=== PATIENT | male | born 1985 | race Caucasian/White ===

== ENCOUNTER → 2021-04-06 | Outpatient (CLI) | payer BC ==
--- NOTE | 2021-04-06 15:48 | CT ---
EXAMINATION TYPE: CT lower extremity RT wo con DATE OF EXAM: 04/06/2021 COMPARISON: None HISTORY: Right fibular fracture CT DLP: 230.8 mGycm Automated exposure control for dose reduction was used. Helical imaging through the right ankle, 3-di mensional reconstructions performed on an alternate workstation and reviewed FINDINGS: Oblique distal right fibular fracture extends into the tibiofibular joint distally, minimal displacem ent. Small ossific density at the level of the distal fibula is well-corticated and not felt likely t o be acute. There is a punctate ossific density level of the os trigonum which is felt likely to be c hronic but is indeterminate, sagittal image #20, axial image 70. Soft tissue swelling is noted. No di slocation. IMPRESSION: DISTAL FOR YOUR FRACTURE DESCRIBED
== END | disposition home or self-care (01) ==
LOC: RADCTMAIN 13:47
PROVIDERS: ATTEND Podiatrist
DX: S82.64XA Nondisplaced fracture of lateral malleolus of right fibula, initial encounter for closed fracture (principal); X58.XXXA Exposure to other specified factors, initial encounter